=== PATIENT | male | born 1990 | race Caucasian/White ===

== ENCOUNTER 2021-04-01 06:43 | Emergency (ER) | payer BC ==
[2021-04-01 07:36] LABS: CORONAVIRUS COVID-19 NAA POSITIVE (NEGATIVE); INFLUENZA A NAA NEGATIVE (NEGATIVE); INFLUENZA B NAA NEGATIVE (NEGATIVE)
== END 2021-04-01 07:44 | disposition home or self-care (01) ==
LOC: MW.ED 06:43
DX: U07.1 COVID-19 (principal); Z72.0 Tobacco use
CPT/HCPCS: 0240U; 99283

== ENCOUNTER 2023-07-15 23:49 | Emergency (ER) | payer BC, OTHER ==
[2023-07-16] MEDS: Benzocaine 20% Topical Spray UD MUCMEM ONE (00:29)
[2023-07-16] MEDS: Acetaminophen/oxyCODONE 325-5 MG Tab PO ONE (00:29)
[2023-07-16] MEDS: Lidocaine 2% Viscous Solution 15 ML UD PO ONE (00:30)
[2023-07-16] MEDS: Amoxicillin/Clavulanate K 875-125 MG Tab PO ONE (00:30)
== END 2023-07-16 00:38 | disposition home or self-care (01) ==
LOC: MW.ED 23:49
DX: K08.89 Other specified disorders of teeth and supporting structures (principal); Z79.899 Other long term (current) drug therapy; Z75.8 Other problems related to medical facilities and other health care
CPT/HCPCS: 99282; A9270; 99283